=== PATIENT | male | born 1965 | race Caucasian/White ===

== ENCOUNTER 2021-10-08 11:59 | Emergency (ER) | payer SELFPAY ==
[2021-10-08 12:05] VITALS: PULSE 95; TEMP 98; BMI 25.8
[2021-10-08 13:09] LABS: BASO % 0.9 % (0-2.0); EOS % 1.7 % (0-4.5); HEMATOCRIT 47.1 % (35.4-49); HEMOGLOBIN 15.6 GM/dL (11.7-16.9); LYMPH % 51.2 % (8-40); MCH 30.3 pg (25.7-33.7); MCHC 33.1 g/dl (32.0-35.9); MEAN CELL VOLUME 91.5 fl (80-96); MEAN PLT VOLUME 8.8 fl (7.5-11.1); MONO % 7.2 % (3.8-10.2); PLATELET COUNT 279 10^3/uL (134-434); RBC 5.15 M/mm3 (4.00-5.60); RDW 13.4 % (11.9-15.9); WHITE BLOOD COUNT 4.1 K/mm3 (4.0-10.0)
[2021-10-08 13:15] LABS: CALCIUM 8.7 mg/dL (8.5-10.1)
[2021-10-08 13:16] LABS: ALBUMIN 4.1 g/dl (3.4-5.0)
[2021-10-08 13:21] LABS: BILIRUBIN,TOTAL 0.9 mg/dL (0.2-1)
[2021-10-08 14:05] VITALS: BP 109/79
== END 2021-10-08 15:15 | disposition home or self-care (01) ==
LOC: JER 11:59
DX: F10.920 Alcohol use, unspecified with intoxication, uncomplicated (principal)
CPT/HCPCS: 70450-TC; 80053; 80307; 82140; 82962; 85025; 99284-25